=== PATIENT | female | born 1935 | race Caucasian/White ===

== ENCOUNTER → 2020-10-05 | Outpatient (CLI) | payer MEDICARE ==
[2020-09-22 11:00] VITALS: BP 103/52
[~2020-10-05] MED LIST: AMLO-186 PO; ATOR10TA60 PO; ERYT1OIN6 OP; FLUT16SP NS; IRBE300T23 PO; LABE100T5 PO; OMEP20CA16 PO; OXYB5TAB10 PO; SERT25TA PO
[2020-10-05 16:19] LABS: BILIRUBIN,URINE NEGATIVE (NEG); CLARITY,URINE CLEAR; COLOR,URINE YELLOW; NITRITE,URINE POSITIVE (NEG); PH,URINE 6.5 (<5.0-8.0); PROTEIN,URINE NEGATIVE (NEG-TRACE)
[2020-10-05 16:29] LABS: BACTERIA,URINE MANY /HPF (0-FEW); RBC,URINE 0 /HPF (0-2); WBC,URINE >40 /HPF (0-4)
== END ==
LOC: LAB 15:23
PROVIDERS: ATTEND Nurse Practitioner Family
DX: R30.0 Dysuria (principal)
CPT/HCPCS: 81001; 87077; 87086; 87186